=== PATIENT | male | born 1970 ===

== ENCOUNTER 2018-01-14 21:47 | Emergency (ER) | payer SELFPAY ==
[2018-01-14 22:18] VITALS: BP 125/81; PULSE 80; TEMP 98.4; O2SAT 99
--- NOTE | 2018-01-14 22:44 | C.PDOC ---
History Of Present Illness 47 year old male with PMHx of eczema presents to the ED c/o diffuse puritic rash for the past week. Patient is no longer using any medication for his eczema. Patient denies known allergens, SOB, lip swelling, tongue swelling, fever, chills. Time Seen by Provider: 01/14/18 22:34 Chief Complaint (Nursing): Abnormal Skin Integrity History Per: Patient History/Exam Limitations: no limitations Onset/Duration Of Symptoms: Days Current Symptoms Are (Timing): Still Present Quality Of Symptoms: Itching Recent travel outside of the [place]: No Additional History Per: Patient Past Medical History Reviewed: Historical Data, Nursing Documentation, Vital Signs Vital Signs: Last Vital Signs Temp 98.4 F 01/14/18 21:58 Pulse 80 01/14/18 21:58 Resp 20 01/14/18 22:55 BP 125/81 01/14/18 21:58 Pulse Ox 99 01/15/18 00:17 - Medical History Other PMH: eczema Surgical History: No Surg Hx Family History: States: Unknown Family Hx - Social History Hx Alcohol Use: No Hx Substance Use: No - Immunization History Hx Tetanus Toxoid Vaccination: No Hx Influenza Vaccination: No Hx Pneumococcal Vaccination: No Review Of Systems Constitutional: Negative for: Fever, Chills ENT: Negative for: Mouth Swelling, Throat Swelling Respiratory: Negative for: Shortness of Breath Gastrointestinal: Negative for: Nausea, Vomiting Skin: Positive for: Rash Neurological: Negative for: Weakness, Numbness Physical Exam - Physical Exam Appears: Non-toxic, No Acute Distress Skin: Normal Color, Warm, Dry, Rash (dry scaly hyperpigmented rash on right antecubital area. Dry patchy rash to bilateral knees.), Other (remainder of skin - normal) Head: Atraumatic, Normacephalic Eye(s): bilateral: Normal Inspection Tongue: No Swelling Lips: No Swelling Extremity: Normal ROM, No Tenderness, No Swelling Neurological/Psych: Oriented x3, Normal Speech Gait: Steady ED Course And Treatment O2 Sat by Pulse Oximetry: 99 (ON RA) Pulse Ox Interpretation: Normal Progress Note: On reassessment, patient is resting comfortably, and is in no acute distress. Patient was instructed to follow up with physician/clinic in 1- 2 days for further evaluation. 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 - Scribe Statement The provider has reviewed the documentation as recorded by the Scribe Andrea Daniel All medical record entries made by the Scribe were at my direction and personally dictated by me. I have reviewed the chart and agree that the record accurately reflects my personal performance of the history, physical exam, medical decision making, and the department course for this patient. I have also personally directed, reviewed, and agree with the discharge instructions and disposition.
[2018-01-14 22:56] VITALS: RESP 20
== END 2018-01-14 22:55 | disposition home or self-care (01) ==
LOC: C.ER 21:47
DX: L30.9 Dermatitis, unspecified (principal)